=== PATIENT | male | born 1955 | race Caucasian/White ===

== ENCOUNTER 2017-03-12 23:56 | Inpatient (IN) ==
[2017-03-13] MEDS ORDERED: MEROPENEM 1,000 MG in SODIUM CHLORIDE 0.9% 100 ML IV STA (00:13)
[2017-03-13] MEDS ORDERED: MORPHINE 2 MG/1 ML SYRINGE IV STA (00:13)
[2017-03-13] MEDS ORDERED: SODIUM CHLORIDE 0.9% 1,000 ML IV STA (00:13)
[2017-03-13] MEDS ORDERED: ONDANSETRON 4 MG/2 ML VIAL IV STA (00:13)
[2017-03-13] MEDS ORDERED: ONDANSETRON 4 MG/2 ML VIAL ONE (00:19)
[2017-03-13] MEDS ORDERED: MORPHINE 2 MG/1 ML SYRINGE ONE (00:20)
--- NOTE | 2017-03-13 00:22 | Emergency Department Note ---
Isidro Mooney Mantricia, am scribing for, and in the presence of, Pradip Kwan MD 00:17. Aquiles Mooney Robert M, MD, personally performed the services described in this documentation, ascribed by Chris Felix in my presence, and it is both accurate and complete . 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 + diaphoresis. Denies N/V/D. Pt is hyperventilating/anxious at time of triage. Last BM this morning. Denies fever. EKG obtained at time of triage Mode of Arrival: Ambulatory Limitations: No Limitations Source: Patient Time Seen by Provider: 03/13/17 00:10 - History of Present Illness HPI Narrative: Pt is a 61 y/o white male arriving to ED wiht c/o abdominal pain that onset 2200 yesterday. Pt states that he feels like his "diaphragm has locked up." Pt denies diverticulitis. At time of consult, pt is in clear pain and is very anxious. No other complaints were reported to ED. Onset (ago): hour(s) Consistency: constant Allergies/Adverse Reactions: Allergies Allergy/AdvReac Type Severity Reaction Status Date / Time No Known Allergies Allergy Verified 03/13/17 00:00 Home Medications: Home Medications Medication Instructions Recorded Confirmed Type No Known Home Medications [No 03/13/17 03/13/17 History Known Home Medications] Review of System - Review of System 12 point system: reviewed and no additional remarkable complaints except as stated - Review of System Constitutional: Present: diaphoresis. Absent: chills, fever Respiratory: Absent: cough Cardiovascular: Absent: chest pain Gastrointestinal: Present: abdominal pain. Absent: nausea, vomiting, diarrhea Medical,Surgical,& Family Hx - Social History Smoking Status: Current every day smoker Frequency of Alcohol Use: None Type of Drug Use: None Exam Vital Signs: Vital Signs Temperature 98.4 F 03/13/17 00:01 Pulse Rate 142 H 03/13/17 00:01 Respiratory Rate 26 H 03/13/17 00:01 Blood Pressure 148/94 03/13/17 00:01 O2 Sat by Pulse Oximetry 99 03/13/17 00:01 - General General appearance: alert, anxious - Head Head exam: Present: atraumatic, normocephalic, normal inspection - Eye Eye exam: Present: normal appearance, PERRL, EOMI - ENT ENT exam: Present: normal exam, normal oropharynx, mucous membranes moist, TM's normal bilaterally, normal external ear exam - Neck Neck exam: Present: normal inspection, full ROM, trachea midline. Absent: tenderness - Chest Chest inspection: Present: normal inspection, symmetric chest wall rise. Absent : tenderness - Respiratory Respiratory exam: Present: normal lung sounds bilaterally - Cardiovascular Cardiovascular exam: Present: regular rate, normal rhythm, normal heart sounds - Abdominal Exam Abdominal exam: Present: tenderness, rigidity, normal bowel sounds, other. Absent: soft, distention, guarding, rebound - Extremities Exam Extremities exam: Present: normal inspection, full ROM, normal capillary refill. Absent: tenderness, pedal edema - Back Exam Back exam: Present: normal inspection, full ROM. Absent: tenderness - Neurological Exam Neurological exam: Present: alert, oriented X3, CN II-XII intact, normal gait, reflexes normal - Psychiatric Psychiatric exam: Present: normal affect, normal mood - Skin Skin exam: Present: warm, dry, intact, normal color Results - Labs CBC & BMP: 03/13/17 00:14 03/13/17 00:14 Lab Results: I have reviewed the patients labs - Diagnostic Findings Procedure: CT Abdomen and Pelvis: image reviewed by me (Ruptured appendicitis. Structures adjacent to the bladder favored to represent diverticula) Disposition Clinical Impression: Ruptured appendicitis Case discussed with: patient, patient's family Disposition: Still a Patient Condition: Stable Time of Disposition: 01:21
[2017-03-13] MEDS ORDERED: MEROPENEM 1,000 MG VIAL IV ONE (00:24)
[2017-03-13 00:37] LABS: Basophils % 0.2 % (0.0-0.8); Hematocrit 50.1 VOL% (42.0-52.0); Hemoglobin 16.9 GM/DL (14.0-18.0); Immature Granulocytes % 1.2 %; Immature Granulocytes Absolute 0.21 #; Lymphocytes # 1.2 10*3/uL (1.4-4.0); Lymphocytes % 7.1 % (21.2-54.2); Mean Corpuscular HGB Conc 33.7 GM/DL (32-36); Mean Corpuscular Hemoglobin 31 PG (27-34); Mean Corpuscular Volume 90.3 FL (87-102); Mean Platelet Volume 11.9 FL (9.6-12.0); Monocytes # 0.7 10*3/uL (0.11-0.8); Monocytes % 4.2 % (1.7-12.7); Neutrophils # 14.9 10*3/uL (1.4-7.4); Neutrophils % 87.3 % (38.7-73.9); Platelet Count 218 T/CUMM (130-400); Red Blood Count 5.55 MC/CUMM (3.8-5.5); Red Cell Distribution Width 14.1 % (9.3-17.3); White Blood Count 17.1 T/CUMM (4-12)
[2017-03-13 00:44] LABS: Calcium 9.4 MG/DL (8.5-10.1); Magnesium 2.1 MG/DL (1.8-2.4); Osmolality,Calculated 275.8 MOS/KG (273-304); Total Protein 7.2 G/DL (6.4-8.3)
[2017-03-13] MEDS ORDERED: ONDANSETRON 4 MG/2 ML VIAL IV PRN (01:12)
[2017-03-13] MEDS ORDERED: MORPHINE 2 MG/1 ML SYRINGE IV PRN (01:12)
[2017-03-13] MEDS ORDERED: ACETAMINOPHEN 325 MG TABLET PO PRN (01:12)
[2017-03-13] MEDS ORDERED: HYDROmorphone 2 MG/1 ML VIAL ONE (01:17)
[2017-03-13] MEDS ORDERED: HYDROmorphone 2 MG/1 ML VIAL IV STA (01:23)
[2017-03-13] MEDS: metroNIDAZOLE INJ 500 MG in PREMIX 1 EACH IV SCH ×3 (02:39→18:07)
[2017-03-13] MEDS: LACTATED RINGERS 1,000 ML IV SCH ×2 (02:39→08:36)
[2017-03-13 04:31] LABS: Apearance,Urine CLEAR (Clear); Bilirubin,Urine Negative (Negative); Blood, Urine Negative (Negative); Glucose,Urine (UA) Negative (Negative); Ketones,Urine Negative (Negative); Mucus,Urine Occasional /LPF (Occasional); Nitrite,Urine Negative (Negative); Protein,Urine 30 MG/DL; RBC,Urine <1 /HPF (0-4); Squamous Epithelial Cell,Urine Occasional /HPF (0-10); Urine Color Yellow (Yellow); Urine Specific Gravity > 1.060 (1.001-1.035); WBC,Urine <1 /HPF (0-6)
--- NOTE | 2017-03-13 06:05 | CT Report ---
History is abdominal and pelvic pain 100 cc Omnipaque 350 utilized No focal defects seen in the liver, spleen, pancreas, or adrenals. The spleen is mildly enlarged. Small renal cysts present No enlarged retroperitoneal nodes seen Bowel is unopacified. A small amount of mildly loculated fluid adjacent to the transverse and right colon is noted. Pelvis: There is a small calcification near the origin of the appendix. Appendix is diffusely dilated and filled with fluid measuring up to 14 mm with inflammatory changes and thickening involving the wall. Adjacent to the tip the appendix, there is a 2 cm collection of ill-defined gas and fluid with surrounding inflammation. There are miniscule amounts of free air present in the peritoneum and anteriorly. There is small amount fluid in the right pelvis and in the pelvis inferiorly. There is 1.5 cm bilateral posterior lateral bladder diverticuli present with a larger 3.5 cm bladder diverticulum just to the left of midline posteriorly. There is a hernia in the medial left inguinal region containing a loop of bowel and small amount of fluid. Impression: 1. Acute appendicitis with perforation 2. Left internal hernia containing a loop of bowel 3. Mild splenomegaly 4. Multiple bladder diverticula 5. Small amount of ascites The CT exam was performed using one or more of the following dose reduction techniques: Automated exposure control, adjustment of the mA and/or kV according to patient size, or use of iterative reconstruction technique. PROCEDURE INTERPRETED AT [facility] DEPARTMENT OF RADIOLOGY Final Report Signed by: Dr. Shandra Langston
[2017-03-13] MEDS: PANTOPRAZOLE 40 MG TABLET PO SCH (08:04)
--- NOTE | 2017-03-13 08:52 | General Surg History&Physical ---
Assessment and Plan - Time spent with patient Time spent with patient: Greater than 30 minutes (1) Incarcerated left inguinal hernia Status: Acute Assessment and plan: 03/13/2017. Incidental incarcerated left inguinal hernia. Patient indicates this is been present for about 10 years, and although he does have some symptoms associated with hernia, at this point had had no plans for repair. We do not intend to repair this area with foreign manage in the face of infection, and this was discussed with the patient and his family. Current Visit: Yes (2) Ruptured appendicitis Status: Acute Assessment and plan: 03/13/2017. Appendicitis with possible perforation and peritonitis. Plan is to take to surgery for laparoscopic appendectomy with washout. Certainly he is at increased risk for conversion to open procedure. This is discussed with the patient family that were present, including the likelihood that he will need a drain left postoperatively. They seem to understand, and he is anxious to proceed. Also note was made and Dr. Oconnor discussed the incidental findings of left inguinal hernia that is at least partially incarcerated. He indicates that this is been present for 10 years and although he is moderately symptomatic , has as yet not planned to have it repaired. We certainly do not want to attempt repair of this in the face of infection, and this also was discussed with the patient and his family. We will continue empiric antibiotics take him to surgery this morning. Current Visit: Yes History of Present Illness Chief complaint: Abdominal pain x 2 days History of present illness: Mr. García is a 61 year old male Home Medications Medication Instructions Recorded Confirmed Type No Known Home Medications [No 03/13/17 03/13/17 History Known Home Medications] Allergies Allergy/AdvReac Type Severity Reaction Status Date / Time No Known Allergies Allergy Verified 03/13/17 05:06 Medical,Surgical,& Family Hx - Medical History Respiratory: History of: Pneumonia - Surgical History Abdominal Surgeries: Patient denies: Abdominal Surgery Reproductive Surgeries: Patient denies;: Genitourinary Surgery - Social History Smoking Status: Current every day smoker Frequency of Alcohol Use: None Type of Drug Use: None Exam - Constitutional Vitals: Period Temp Pulse Resp BP Sys/Edge Pulse Ox Last 24 Hr 98.4 F-99.3 F 104-142 20-26 94-148/56-94 95-99 General appearance: normal weight, no acute distress, other (AAOx3; family present. He is uncomfortable but able to answer questions appropriately. ) - Head Head exam: Present: normocephalic - Eye Eye exam: Present: EOMI Pupils: Present: PAVEL - ENT Mouth exam: Present: dry mucosa, other (Poor dentition) - Neck Neck exam: Present: trachea midline. Absent: lymphadenopathy - Respiratory Respiratory exam: Present: other (Involuntary guarding with deep inspiration, secondary to abdominal pain.). Absent: rales, wheezes - Cardiovascular Cardiovascular exam: Present: RRR - GI/Abdominal GI/Abdominal exam: Present: distended, guarding, hypoactive bowel sounds, hernia (Large left inguinal hernia, partially reducible. It is not unusually tender. ), tenderness (Along the right side, with localized tenderness at the right periumbilical and lower quandrant sites. ), rebound - Extremities Exam Extremities exam: Present: normal inspection - Neurological Exam Neurological exam: Present: alert, oriented X3 Speech: Present: normal - Genitourinary Genitourinary: Present: other (LIH x 10 years) Results - Labs CBC & BMP: 03/13/17 00:14 03/13/17 00:14 Lab Results: I have reviewed the past 24 hour labs - Diagnostic Findings Procedure: CT Abdomen and Pelvis: image reviewed by me, report reviewed by me ( Reviewed with Dr Oconnor; appendicitis with perforation; also incidental left inguinal hernia with incarcerated loop of bowel)
--- NOTE | 2017-03-13 09:11 | EKG Report ---
Stationary ECG Study [facility] ER Test Date: 03/13/2017 12:05:19 AM Pat Name: JAVID RICE Department: Room: 335 Gender: M [employer]: [employer] : 1955 Requested by: Pradip Kwan Order Number: [id number] Reading MD: JOÃO MOSLEY Intervals [place] Rate: 134 P: 85 [place]: 160 QRS: 66 QRSD: 102 T: 73 QT: 287 QTc: 366 Interpretive Statements SINUS TACHYCARDIA INCOMPLETE RIGHT BUNDLE BRANCH BLOCK MINIMAL ST DEPRESSION Electronically Signed On 03-14-17 06:45:40 CDT by JOÃO MOSLEY [email or web address]
[2017-03-13 09:30] LABS: Basophils % 0.2 % (0.0-0.8); Hematocrit 43.5 VOL% (42.0-52.0); Hemoglobin 15.1 GM/DL (14.0-18.0); Immature Granulocytes % 0.5 %; Immature Granulocytes Absolute 0.06 #; Lymphocytes # 0.6 10*3/uL (1.4-4.0); Lymphocytes % 4.5 % (21.2-54.2); Mean Corpuscular HGB Conc 34.7 GM/DL (32-36); Mean Corpuscular Hemoglobin 31 PG (27-34); Mean Platelet Volume 11.3 FL (9.6-12.0); Monocytes # 0.5 10*3/uL (0.11-0.8); Monocytes % 4.3 % (1.7-12.7); Neutrophils # 11.2 10*3/uL (1.4-7.4); Neutrophils % 90.5 % (38.7-73.9); Platelet Count 161 T/CUMM (130-400); Red Blood Count 4.89 MC/CUMM (3.8-5.5); Red Cell Distribution Width 14.3 % (9.3-17.3); White Blood Count 12.3 T/CUMM (4-12)
[2017-03-13] MEDS ORDERED: BUPIVACAINE MPF 0.25% /EPI 30 ML VIAL ONE (09:37)
--- NOTE | 2017-03-13 09:40 | XRay Report ---
Portable chest. Indication: Respiratory preoperative. No previous study. The heart is normal in size. The pulmonary vasculature is normal. Mild linear areas of atelectasis at the left base. No consolidation, pneumothorax, or pleural effusion. Gaseous distention of bowel. Degenerative changes of the spinal column and shoulders. Impression: Mild left basilar atelectasis. PROCEDURE INTERPRETED AT [facility] DEPARTMENT OF RADIOLOGY Final Report Signed by: Dr. María Langston
[2017-03-13 09:52] LABS: Calcium 8.6 MG/DL (8.5-10.1); Osmolality,Calculated 277.5 MOS/KG (273-304); Potassium 4.3 MMOL/L (3.5-5.1)
[2017-03-13 09:56] LABS: Band Neutrophils 1 % (0-10); Giant Platelets Few; Hypochromasia Slight; Lymphocytes 7 % (20-55); Platelet Estimate Normal; Segmented Neutrophils 86 % (50-85); Total Cells Counted 100
[2017-03-13] MEDS ORDERED: TISSUE ADHESIVE 1 EACH APPLICATOR TOP ONE (11:33)
--- NOTE | 2017-03-13 11:38 | Operative Note ---
Date of procedure: 03/13/17 Pre-op diagnosis: Abdominal pain secondary to acute appendicitis Post-op diagnosis: other (Acute gangrenous perforated appendicitis with peritonitis) Procedure: Operative note: Preoperative diagnosis: Abdominal pain with CT evidence of acute appendicitis Postoperative diagnosis: Acute gangrenous perforated appendicitis Procedure: Laparoscopic appendectomy with placement of drain Surgeon Dr. Oconnor Television Cameraman Qi Hitchcock, AFSHAN ACNP Anesthesia was general with local Brief history: 61-year-old white male who has had the onset of abdominal pain for couple days it has gotten better progressively worse where it makes it even harder for him take a deep breath and he has discomfort in the right lower quadrant especially with motion. He has a certain degree of involuntary guarding at this time. CT scan was performed showing acute appendicitis with possible perforation and fluid. Elected to bring him to surgery and get this appendix out and get some drainage going. Procedure: With patient in the supine position prepped and draped in a sterile fashion timeout and antibiotics completed approaches area just above the umbilicus were infiltrated with local anesthetic and made incision through the skin and subcutaneous tissue. Incised the fascia and then attempted to enter the peritoneal cavity under direct vision but could never get a good sense of it so I took a varies needle lifted up the peritoneum abdominal wall and we popped the varies needle and and then instilled 3 L of CO2. This allowed us to place the 5 mm trocar in without difficulty. We put our scope in and what we found was a large amount of inflammatory tissue up against the anterior abdominal wall right upper quadrant area with omentum in it. Could not get a good feel for a spot for the other trocar. I elected to go ahead and placed a 12 mm trocar and at the right anterior axillary line under direct vision because I could see the clear window at this point. We got that scoping and I was able again to sweep some of this bowel away from the anterior abdominal wall until I could get the 5 mm trocar in the mid hypogastric area. At that point we put him in Trendelenburg and tilted left side position. He had sigmoid colon that was kind of projecting over towards the right lower quadrant area make it difficult to see underneath it. With careful dissection with the atraumatic graspers I was finally able to identify the appendix and begin to bring it up. It was lying underneath the sigmoid colon. We then put a sputum trap and and sucked out the fluid of the pelvis for cultures. At that point went back in and then was able with careful mobilization to mobilize the appendix up enough that I can begin to go across the mesoappendix with vascular and GI staplers. At the slowly walk it up to the base of the cecum to get a good visualization visualization of that cecum. Once I had it up after going across the mesoappendix 4 times with the vascular Endo CHRISTOPHER were able to go across the base of the appendix with a blue Endo CHRISTOPHER stapler. Once the appendix was free from the sacrum we placed in an Endo Catch bag and brought it out through the lateral port. Went back in washed the right lower quadrant and the pelvic area out as much as we could remove any what looked like some stool product out of the pelvic area and the right lower quadrant region. There were some adhesions in the upper part but they looked a little more old and fresh so I could not take a lot of that down at this time. Once that had been completed I took a 10 Konrad-Garcia brought to the lateral port placed in the pelvis and in the right lower quadrant area. We then took an Endo Close and closed the fascia peritoneum around the drain with a #1 Monocryl suture. Once that was tied and this was secured then we then deflated the abdomen went back to the umbilicus and closed that fascia with interrupted 0 Monocryl suture. We washed out subtenons tissue closed with 30 Vicryl Close the skin with running 4-0 Monocryl we had to place a 3-0 nylon around the drain at the drain site. Once that was completed was taken to recovery room. Estimated blood loss 15 cc Sponge count correct 2 Drains one #10 Konrad-Garcia Complications none Condition stable satisfactory Anesthesia: GETA, local (0.25% Marcaine with epinephrine mixed have not once in Xylocaine plain into the trocar sites.) Surgeon / Physician: Pradip Oconnor Television Cameraman: Qi Hitchcock Estimated blood loss: other (15 cc) Specimens: other (Fluid for cultures and the appendix) Condition: stable Disposition: floor Results - Labs CBC & BMP: 03/13/17 09:16 03/13/17 09:16 Discharge Plan - Discharge Medications No Action No Known Home Medications [No Known Home Medications] - Follow Up or Referral - Forms/Instructions
[2017-03-13] MEDS: DEXTROSE 5% NACL 0.9% 1,000 ML IV SCH ×3 (11:57→22:29)
[2017-03-13] MEDS ORDERED: SEVOFLURANE 1 UNIT/15 MINUTE INH ONE (12:09)
[2017-03-13] MEDS ORDERED: MIDAZOLAM 2 MG/2 ML VIAL ONE (12:09)
[2017-03-13] MEDS ORDERED: fentaNYL 100 MCG/2 ML VIAL ONE (12:10)
[2017-03-13] MEDS ORDERED: LACTATED RINGERS 1,000 ML IV ONE (12:10)
--- NOTE | 2017-03-13 13:04 | Anesthesia Post-Op ---
Anesthesia Post OP - Post Ansesthetic Evaluation Patient seen in post op: Yes Resp: within normal limits CV: within normal limits Mental: within normal limits Temp: within normal limits [id number]: within normal limits Nausea and Vomiting: within normal limits Pain: within normal limits
[2017-03-13] MEDS: HYDROmorphone 2 MG/1 ML VIAL IV PRN (17:14)
[2017-03-14] MEDS: metroNIDAZOLE INJ 500 MG in PREMIX 1 EACH IV SCH ×3 (02:40→19:28)
[2017-03-14] MEDS: DEXTROSE 5% NACL 0.9% 1,000 ML IV SCH ×2 (03:04→16:11)
[2017-03-14 05:56] LABS: Basophils % 0.1 % (0.0-0.8); Hematocrit 39.5 VOL% (42.0-52.0); Hemoglobin 13.2 GM/DL (14.0-18.0); Immature Granulocytes % 0.5 %; Immature Granulocytes Absolute 0.04 #; Lymphocytes # 0.5 10*3/uL (1.4-4.0); Lymphocytes % 6.1 % (21.2-54.2); Mean Corpuscular HGB Conc 33.4 GM/DL (32-36); Mean Corpuscular Hemoglobin 30 PG (27-34); Mean Corpuscular Volume 90.6 FL (87-102); Mean Platelet Volume 12.2 FL (9.6-12.0); Monocytes # 0.3 10*3/uL (0.11-0.8); Neutrophils # 7.6 10*3/uL (1.4-7.4); Neutrophils % 89.3 % (38.7-73.9); Platelet Count 158 T/CUMM (130-400); Red Blood Count 4.36 MC/CUMM (3.8-5.5); Red Cell Distribution Width 14.6 % (9.3-17.3); White Blood Count 8.5 T/CUMM (4-12)
[2017-03-14 06:18] LABS: Band Neutrophils 1 % (0-10); Hypochromasia Slight; Lymphocytes 11 % (20-55); Platelet Estimate Normal; Segmented Neutrophils 83 % (50-85); Total Cells Counted 100
[2017-03-14 06:34] LABS: Albumin 2.5 G/DL (3.4-5.0); Calcium 8.6 MG/DL (8.5-10.1); Osmolality,Calculated 279.4 MOS/KG (273-304); Potassium 4.4 MMOL/L (3.5-5.1); Total Protein 5.2 G/DL (6.4-8.3)
[2017-03-14] MEDS: ENOXAPARIN 40 MG/0.4 ML SYRINGE SUBCUT SCH (07:50)
--- NOTE | 2017-03-14 08:39 | EKG Report ---
Stationary ECG Study [facility] Test Date: 03/13/2017 9:22:42 AM Pat Name: JAVID RICE Department: Room: 335 Gender: M Wrapping Machine Operator: : 1955 Requested by: Daniel Moulton Order Number: [id number] Reading MD: JOÃO MOSLEY Intervals [place] Rate: 96 P: 68 [place]: 155 QRS: 42 QRSD: 102 T: 43 QT: 327 QTc: 381 Interpretive Statements SINUS RHYTHM INCOMPLETE RIGHT BUNDLE BRANCH BLOCK Electronically Signed On 03-13-17 11:33:18 CDT by JOÃO MOSLYE [id number]
[2017-03-14] MEDS: PANTOPRAZOLE 40 MG TABLET PO SCH (09:08)
[2017-03-14] MEDS: ONDANSETRON 4 MG/2 ML VIAL IV PRN (09:09)
--- NOTE | 2017-03-14 09:11 | General Surgery Progress Note ---
Assessment and Plan (1) Incarcerated left inguinal hernia Status: Acute Assessment and plan: 03/13/2017. Incidental incarcerated left inguinal hernia. Patient indicates this is been present for about 10 years, and although he does have some symptoms associated with hernia, at this point had had no plans for repair. We do not intend to repair this area with foreign manage in the face of infection, and this was discussed with the patient and his family. Current Visit: Yes (2) Ruptured appendicitis Status: Acute Assessment and plan: 03/13/2017. Appendicitis with possible perforation and peritonitis. Plan is to take to surgery for laparoscopic appendectomy with washout. Certainly he is at increased risk for conversion to open procedure. This is discussed with the patient family that were present, including the likelihood that he will need a drain left postoperatively. They seem to understand, and he is anxious to proceed. Also note was made and Dr. Oconnor discussed the incidental findings of left inguinal hernia that is at least partially incarcerated. He indicates that this is been present for 10 years and although he is moderately symptomatic , has as yet not planned to have it repaired. We certainly do not want to attempt repair of this in the face of infection, and this also was discussed with the patient and his family. We will continue empiric antibiotics take him to surgery this morning. 03/14/2017. Stable postop laparoscopic appendectomy for acute gangrenous appendicitis. We will plan to leave him on clear since he is nauseated today. We will get him up in chair and increase his mobility. Treat his nausea symptomatically and advance his diet very slowly. Overall progressing slowly Current Visit: Yes Subjective Patient reports: Present: pain is less, nausea. Absent: vomiting, shortness of breath Exam - Constitutional Vitals: Period Temp Pulse Resp BP Sys/Edge Pulse Ox Last 24 Hr 97.2 F-99.1 F 75-97 16-20 103-127/62-92 92-100 General appearance: no acute distress - Respiratory Respiratory exam: Present: rhonchi. Absent: wheezes - Cardiovascular Cardiovascular exam: Present: RRR - GI/Abdominal GI/Abdominal exam: Present: hypoactive bowel sounds, soft, other (SHREYAS drainage is approximately 30-40 cc, still a bit cloudy with some mild debris. Abdomen is appropriately tender postop. Incisions are clean and dry without any unusual redness.) - Extremities Exam Extremities exam: Present: normal inspection Results - Labs CBC & BMP: 03/14/17 03:53 03/14/17 03:53 Lab Results: I have reviewed the past 24 hour labs
--- NOTE | 2017-03-14 09:33 | Physician Query Form ---
CLICK EDIT DOCUMENT TO SELECT QUERY ANSWER --> OK --> SIGN Cookie Kwan RN, CCDS Certified Clinical Hand Roller W) [phone] (f) [phone] [email or web address] PROVIDERS: Make your selection(s) from the choices in EACH section by typing an "x" and enter comments in the comment section. Please use your independent medical judgment in providing your response. This request does not imply that any particular answer is desired or expected. CLINICAL INDICATORS: (Providers should not edit this section) The medical record indicates that the patient was admitted with a ruptured appendicitis, Peritonitis, WBC 17.1#, Lactic Acid of 4.0, Pulse Rate 142#, Respirations of 26# and the patient was placed on Antibiotics. Please clarify which, if any, of the following is the etiology of the above symptoms and treatment rendered: (x ) Sepsis due to a localized infection, please specify infection: Appendix; peritoneum ( ) Severe Sepsis (sepsis with acute organ failure) - Please specify type acute organ failure: ( ) Septic Shock (severe sepsis with hypotension) ( ) SIRS of noninfectious origin ( ) Sepsis due to a device, implant or graft, please specify: ( ) Localized infection only, without systemic illness, please specify infection : ( ) Bacteremia (abnormal lab finding only, does not indicate systemic illness) ( ) Other condition, please specify: ( ) Clinically unable to determine Criteria for Sepsis (SIRS due to an infection) should be based on 2 or more of the following being present: Temperature > 101F or < 96.8F WBC > 12,000 or < 4,000, or > 10% bands Tachycardia HR > 90 beats/minute Tachypnea RR > 20 breaths/minute or PaCO2 > 32mmHg Lactate level > 2.0 mmol/L (>4 is equivalent to severe sepsis) Altered Mental Status Mottling of skin or prolonged capillary refill Non-diabetic hyperglycemia (blood sugar >120 mg/dl) Other evidence of acute organ failure associated with sepsis ( severe sepsis) COMMENTS: PLEASE ALSO DOCUMENT RESPONSE IN PROGRESS NOTES AND/OR DISCHARGE SUMMARY Use of terms such as suspected, likely, or probable (associated with a specific diagnosis that is being evaluated, monitored, or treated as if it exists) are acceptable and can be restated in the discharge summary if not ruled out. MTDD
[2017-03-14] MEDS ORDERED: PHENYLEPHRINE 1 MG/10 ML SYRINGE IV ONE (09:50)
[2017-03-14] MEDS ORDERED: ONDANSETRON 4 MG/2 ML VIAL ONE (09:50)
[2017-03-14] MEDS ORDERED: DEXAMETHASONE 10 MG/1 ML VIAL ONE (09:50)
[2017-03-14] MEDS ORDERED: SUCCINYLCHOLINE 200 MG/10 ML VIAL ONE (09:50)
[2017-03-14] MEDS ORDERED: ROCURONIUM 100 MG/10 ML VIAL IV ONE (09:50)
[2017-03-14] MEDS ORDERED: PROPOFOL 200 MG/20 ML VIAL IV ONE (09:50)
[2017-03-14] MEDS ORDERED: LIDOCAINE 1% 5 ML VIAL ONE (09:50)
[2017-03-14] MEDS: HYDROmorphone 2 MG/1 ML VIAL IV PRN ×3 (10:33→21:38)
[2017-03-15] MEDS: metroNIDAZOLE INJ 500 MG in PREMIX 1 EACH IV SCH ×3 (02:42→19:06)
[2017-03-15] MEDS: DEXTROSE 5% NACL 0.9% 1,000 ML IV SCH ×3 (02:46→22:30)
[2017-03-15] MEDS: HYDROmorphone 2 MG/1 ML VIAL IV PRN ×4 (03:53→22:27)
[2017-03-15] MEDS: ENOXAPARIN 40 MG/0.4 ML SYRINGE SUBCUT SCH (05:34)
[2017-03-15] MEDS: PANTOPRAZOLE 40 MG TABLET PO SCH (09:38)
--- NOTE | 2017-03-15 09:54 | General Surgery Progress Note ---
Assessment and Plan - Time spent with patient Time spent with patient: Less than 30 minutes (1) Incarcerated left inguinal hernia Status: Acute Assessment and plan: 03/13/2017. Incidental incarcerated left inguinal hernia. Patient indicates this is been present for about 10 years, and although he does have some symptoms associated with hernia, at this point had had no plans for repair. We do not intend to repair this area with foreign manage in the face of infection, and this was discussed with the patient and his family. Current Visit: Yes (2) Ruptured appendicitis Status: Acute Assessment and plan: 03/13/2017. Appendicitis with possible perforation and peritonitis. Plan is to take to surgery for laparoscopic appendectomy with washout. Certainly he is at increased risk for conversion to open procedure. This is discussed with the patient family that were present, including the likelihood that he will need a drain left postoperatively. They seem to understand, and he is anxious to proceed. Also note was made and Dr. Oconnor discussed the incidental findings of left inguinal hernia that is at least partially incarcerated. He indicates that this is been present for 10 years and although he is moderately symptomatic , has as yet not planned to have it repaired. We certainly do not want to attempt repair of this in the face of infection, and this also was discussed with the patient and his family. We will continue empiric antibiotics take him to surgery this morning. 03/14/2017. Stable postop laparoscopic appendectomy for acute gangrenous appendicitis. We will plan to leave him on clear since he is nauseated today. We will get him up in chair and increase his mobility. Treat his nausea symptomatically and advance his diet very slowly. Overall progressing slowly 03/15/2017. Progressing very slowly postop lap appendectomy for gangrenous perforated appendix. He is certainly not moving well, but it is encouraging to areas bowel activity. Will slowly advance his diet to full liquids and get him out of bed today. We will add some Mylanta PRN and Reglan. Of note he does have gram negative rods on blood cultures 2. We will add Levaquin IV as well. Current Visit: Yes Subjective Patient reports: Present: still having pain, tolerating liquids well, other ( Complains of "fullness" with any p.o. intake). Absent: no bowel movement Exam - Constitutional Vitals: Period Temp Pulse Resp BP Sys/Edge Pulse Ox Last 24 Hr 97.1 F-98.2 F 79-89 14-19 102-133/67-78 95-98 General appearance: normal weight, no acute distress - ENT Mouth exam: Present: dry mucosa - Respiratory Respiratory exam: Present: clear to auscultation bilaterally - Cardiovascular Cardiovascular exam: Present: RRR - GI/Abdominal GI/Abdominal exam: Present: distended, other (Is bit more distended today, although he does have some intermittent bowel sounds due to.) - Extremities Exam Extremities exam: Present: normal inspection - Neurological Exam Neurological exam: Present: alert, oriented X3 Results - Labs CBC & BMP: 03/14/17 03:53 03/14/17 03:53 Specialty Discharge - Follow Up or Referrals Follow up with: Pradip Oconnor MD [Physician] -
[2017-03-15] MEDS: LEVOFLOXACIN INJ 500 MG in PREMIX 1 EACH IV SCH (11:04)
[2017-03-15] MEDS: METOCLOPRAMIDE 10 MG/2 ML VIAL IV SCH ×2 (12:07→18:41)
[2017-03-16] MEDS: METOCLOPRAMIDE 10 MG/2 ML VIAL IV SCH ×5 (00:50→23:55)
[2017-03-16] MEDS: metroNIDAZOLE INJ 500 MG in PREMIX 1 EACH IV SCH ×3 (03:13→18:05)
--- NOTE | 2017-03-16 03:31 | Pathology Report from [facility] ---
[facility] [place] ACCESSION # : [id number] PATIENT NAME : Javid García ORDERING DR : MARY SCHMITZ MD CLINICAL HX: Ruptured appendicitis POST-OP DX: Same SPECIMEN INFO: Appendix GROSS DESCRIPTION: The specimen is received in formalin labeled with the patients name and consists of an appendix measuring 10.0 cm in length and up to 1.0 cm in diameter. The serosa is markedly erythematous with two ruptured areas noted. A 1.0 x 0.7 cm fecalith is noted near the proximal aspect of the appendix. Construction Mgr sections submitted in one cassette. DIAGNOSIS FOR JAVID GARCÍA: APPENDIX, APPENDECTOMY: Acute suppurative appendicitis. COLLECTED DATE: 03/14/2017 [facility] [place] REPORT DATE: 03/15/2017 ELECTRONICALLY SIGNED BY: Isak Jonas M.D. 03/15/2017 - 8:43:19 MTDD
[2017-03-16] MEDS: ENOXAPARIN 40 MG/0.4 ML SYRINGE SUBCUT SCH (05:01)
[2017-03-16 06:07] LABS: Basophils % 0.2 % (0.0-0.8); Eosinophils % 0.3 % (0.00-10.9); Hematocrit 44.2 VOL% (42.0-52.0); Hemoglobin 14.9 GM/DL (14.0-18.0); Immature Granulocytes % 0.9 %; Immature Granulocytes Absolute 0.08 #; Lymphocytes # 0.7 10*3/uL (1.4-4.0); Mean Corpuscular HGB Conc 33.7 GM/DL (32-36); Mean Corpuscular Hemoglobin 30 PG (27-34); Mean Corpuscular Volume 88.4 FL (87-102); Monocytes # 0.4 10*3/uL (0.11-0.8); Monocytes % 4.8 % (1.7-12.7); Neutrophils # 7.8 10*3/uL (1.4-7.4); Neutrophils % 85.8 % (38.7-73.9); Platelet Count 253 T/CUMM (130-400); Red Cell Distribution Width 14.4 % (9.3-17.3); White Blood Count 9.1 T/CUMM (4-12)
[2017-03-16 06:35] LABS: Albumin 2.6 G/DL (3.4-5.0); Bilirubin,Total 0.8 MG/DL (0.2-1.0); Osmolality,Calculated 277.7 MOS/KG (273-304); Total Protein 5.8 G/DL (6.4-8.3)
[2017-03-16] MEDS: HYDROmorphone 2 MG/1 ML VIAL IV PRN ×2 (07:20→11:06)
[2017-03-16] MEDS: DEXTROSE 5% NACL 0.9% 1,000 ML IV SCH ×4 (07:56→20:27)
[2017-03-16] MEDS: PANTOPRAZOLE 40 MG TABLET PO SCH (09:15)
[2017-03-16] MEDS: LEVOFLOXACIN INJ 500 MG in PREMIX 1 EACH IV SCH (09:54)
--- NOTE | 2017-03-16 10:02 | General Surgery Progress Note ---
Assessment and Plan (1) Incarcerated left inguinal hernia Status: Acute Assessment and plan: 03/13/2017. Incidental incarcerated left inguinal hernia. Patient indicates this is been present for about 10 years, and although he does have some symptoms associated with hernia, at this point had had no plans for repair. We do not intend to repair this area with foreign manage in the face of infection, and this was discussed with the patient and his family. Current Visit: Yes (2) Ruptured appendicitis Status: Acute Assessment and plan: 03/13/2017. Appendicitis with possible perforation and peritonitis. Plan is to take to surgery for laparoscopic appendectomy with washout. Certainly he is at increased risk for conversion to open procedure. This is discussed with the patient family that were present, including the likelihood that he will need a drain left postoperatively. They seem to understand, and he is anxious to proceed. Also note was made and Dr. Oconnor discussed the incidental findings of left inguinal hernia that is at least partially incarcerated. He indicates that this is been present for 10 years and although he is moderately symptomatic , has as yet not planned to have it repaired. We certainly do not want to attempt repair of this in the face of infection, and this also was discussed with the patient and his family. We will continue empiric antibiotics take him to surgery this morning. 03/14/2017. Stable postop laparoscopic appendectomy for acute gangrenous appendicitis. We will plan to leave him on clear since he is nauseated today. We will get him up in chair and increase his mobility. Treat his nausea symptomatically and advance his diet very slowly. Overall progressing slowly 03/15/2017. Progressing very slowly postop lap appendectomy for gangrenous perforated appendix. He is certainly not moving well, but it is encouraging to areas bowel activity. Will slowly advance his diet to full liquids and get him out of bed today. We will add some Mylanta PRN and Reglan. Of note he does have gram negative rods on blood cultures 2. We will add Levaquin IV as well. 03/16/2017. Stable postop appendectomy. He is having increased bowel sounds and is now moving about better. Since he is having no nausea or vomiting and is showing a little more signs of an appetite, we will go ahead and advance his diet in hopes of eliciting a bowel movement. I have also ordered a suppository as needed. Continue IV antibiotics and plan to leave the SHREYAS drain until he is ready for discharge. Current Visit: Yes Subjective Patient reports: Present: still having pain, pain is less, tolerating liquids well, voiding w/o difficulty, no flatus, other (He has been sitting up in the chair yesterday. Says he feels a little better. ). Absent: nausea, vomiting, shortness of breath Exam - Constitutional Vitals: Period Temp Pulse Resp BP Sys/Edge Pulse Ox Last 24 Hr 96.9 F-97.7 F 73-89 18-20 113-154/68-94 94-95 General appearance: no acute distress - Respiratory Respiratory exam: Present: clear to auscultation bilaterally - Cardiovascular Cardiovascular exam: Present: RRR - GI/Abdominal GI/Abdominal exam: Present: hypoactive bowel sounds, other (Abdomen is still a little distended. He does have increased bowel sounds present. He is appropriately tender, and his SHREYAS output is clear peritoneal fluid without any unusual debris.) - Extremities Exam Extremities exam: Present: normal inspection Results - Labs CBC & BMP: 03/16/17 05:28 03/16/17 05:28 Lab Results: I have reviewed the past 24 hour labs (Labs now near normal.) Specialty Discharge - Follow Up or Referrals Follow up with: Pradip Oconnor MD [Physician] -
[2017-03-16] MEDS ORDERED: BISACODYL 10 MG SUPP RECTAL PRN (10:03)
[2017-03-16] MEDS ORDERED: DOCUSATE SODIUM 100 MG CAPSULE PO PRN (10:03)
[2017-03-17] MEDS: metroNIDAZOLE INJ 500 MG in PREMIX 1 EACH IV SCH ×3 (02:26→18:01)
[2017-03-17] MEDS: DEXTROSE 5% NACL 0.9% 1,000 ML IV SCH ×2 (04:45→06:40)
[2017-03-17] MEDS: ENOXAPARIN 40 MG/0.4 ML SYRINGE SUBCUT SCH (04:45)
[2017-03-17] MEDS: METOCLOPRAMIDE 10 MG/2 ML VIAL IV SCH (05:04)
[2017-03-17] MEDS: PANTOPRAZOLE 40 MG TABLET PO SCH (09:11)
--- NOTE | 2017-03-17 09:52 | General Surgery Progress Note ---
Assessment and Plan (1) Incarcerated left inguinal hernia Status: Acute Assessment and plan: 03/13/2017. Incidental incarcerated left inguinal hernia. Patient indicates this is been present for about 10 years, and although he does have some symptoms associated with hernia, at this point had had no plans for repair. We do not intend to repair this area with foreign manage in the face of infection, and this was discussed with the patient and his family. Current Visit: Yes (2) Ruptured appendicitis Status: Acute Assessment and plan: 03/13/2017. Appendicitis with possible perforation and peritonitis. Plan is to take to surgery for laparoscopic appendectomy with washout. Certainly he is at increased risk for conversion to open procedure. This is discussed with the patient family that were present, including the likelihood that he will need a drain left postoperatively. They seem to understand, and he is anxious to proceed. Also note was made and Dr. Oconnor discussed the incidental findings of left inguinal hernia that is at least partially incarcerated. He indicates that this is been present for 10 years and although he is moderately symptomatic , has as yet not planned to have it repaired. We certainly do not want to attempt repair of this in the face of infection, and this also was discussed with the patient and his family. We will continue empiric antibiotics take him to surgery this morning. 03/14/2017. Stable postop laparoscopic appendectomy for acute gangrenous appendicitis. We will plan to leave him on clear since he is nauseated today. We will get him up in chair and increase his mobility. Treat his nausea symptomatically and advance his diet very slowly. Overall progressing slowly 03/15/2017. Progressing very slowly postop lap appendectomy for gangrenous perforated appendix. He is certainly not moving well, but it is encouraging to areas bowel activity. Will slowly advance his diet to full liquids and get him out of bed today. We will add some Mylanta PRN and Reglan. Of note he does have gram negative rods on blood cultures 2. We will add Levaquin IV as well. 03/16/2017. Stable postop appendectomy. He is having increased bowel sounds and is now moving about better. Since he is having no nausea or vomiting and is showing a little more signs of an appetite, we will go ahead and advance his diet in hopes of eliciting a bowel movement. I have also ordered a suppository as needed. Continue IV antibiotics and plan to leave the SHREYAS drain until he is ready for discharge. 03/17/17 Doing well post op lap appendectomy with peritonitis. He is tolerating a regular diet and having bowel movements, so will d/c routine IV fluids and Reglan. We now have sensitivities for the peritoneal fluid, which showed Gram negative organisms including Pseudomonas aeruginosa; blood cultures were positive as well, with Gram negative organisms(Prevotella species-no sensitivity available). I discussed this finding with Dr Avilez and we will continue the IV route but tailor his antibiotics to Cipro/Clindamycin, as he can transition to home therapy on these, well as continue Flagyl. Overall, he is improved greatly from yesterday, and we can now begin to make discharge plans soon. Current Visit: Yes Subjective Patient reports: Present: feels better, pain is less, tolerating a regular diet , flatus, bowel movement. Absent: nausea, vomiting, shortness of breath Exam - Constitutional Vitals: Period Temp Pulse Resp BP Sys/Edge Pulse Ox Last 24 Hr 96.8 F-98.9 F 74-96 18-20 129-155/68-92 95-96 General appearance: no acute distress - Respiratory Respiratory exam: Present: clear to auscultation bilaterally - Cardiovascular Cardiovascular exam: Present: RRR - GI/Abdominal GI/Abdominal exam: Present: other (Abdomen is mildly distended, appropriately tender, and has normoactive bowel sounds. The incisions are clean and dry without unusual redness or tenderness. SHREYAS in place; serous drainage in bulb. There was a bump in amount to 140mL last night but down to 30mL today. No debris or purulent matter. ) - Extremities Exam Extremities exam: Present: normal inspection Results - Labs CBC & BMP: 03/16/17 05:28 03/16/17 05:28 Specialty Discharge - Follow Up or Referrals Follow up with: Pradip Oconnor MD [Physician] -
[2017-03-17] MEDS: CIPROFLOXACIN INJ 400 MG in PREMIX 1 EACH IV SCH ×2 (10:26→21:43)
--- NOTE | 2017-03-17 10:49 | Event Note ---
I have seen and examined this patient and agree with the note by AFSHAN Mckeon. The patient had positive blood cultures on admission with Prevotella species and is also being treated for multi-bacterial abscess from appendicitis. He appears to be doing well and potential for discharge home as possible. We will place the patient on clindamycin and ciprofloxacin which will cover both of his cultures. Continue current care for now
[2017-03-17] MEDS: CLINDAMYCIN INJ 600 MG in PREMIX 1 EACH IV SCH ×2 (11:40→17:15)
[2017-03-18] MEDS: CLINDAMYCIN INJ 600 MG in PREMIX 1 EACH IV SCH (02:23)
[2017-03-18] MEDS: metroNIDAZOLE INJ 500 MG in PREMIX 1 EACH IV SCH (04:25)
[2017-03-18 05:43] LABS: Basophils # 0.1 10*3/uL (0.0-0.2); Basophils % 0.5 % (0.0-0.8); Eosinophils # 0.1 10*3/uL (0.0-0.87); Eosinophils % 1.5 % (0.00-10.9); Hematocrit 40.7 VOL% (42.0-52.0); Hemoglobin 13.7 GM/DL (14.0-18.0); Immature Granulocytes Absolute 0.28 #; Lymphocytes # 0.9 10*3/uL (1.4-4.0); Lymphocytes % 10.1 % (21.2-54.2); Mean Corpuscular HGB Conc 33.7 GM/DL (32-36); Mean Corpuscular Hemoglobin 30 PG (27-34); Mean Corpuscular Volume 87.9 FL (87-102); Mean Platelet Volume 10.4 FL (9.6-12.0); Monocytes # 0.7 10*3/uL (0.11-0.8); Monocytes % 7.6 % (1.7-12.7); Neutrophils # 7.1 10*3/uL (1.4-7.4); Neutrophils % 77.3 % (38.7-73.9); Platelet Count 246 T/CUMM (130-400); Red Blood Count 4.63 MC/CUMM (3.8-5.5); Red Cell Distribution Width 14.4 % (9.3-17.3); White Blood Count 9.2 T/CUMM (4-12)
[2017-03-18 06:13] LABS: Calcium 8.2 MG/DL (8.5-10.1); Magnesium 2.2 MG/DL (1.8-2.4); Osmolality,Calculated 274.7 MOS/KG (273-304); Potassium 3.9 MMOL/L (3.5-5.1)
[2017-03-18] MEDS: ENOXAPARIN 40 MG/0.4 ML SYRINGE SUBCUT SCH (06:51)
[2017-03-18] MEDS: PANTOPRAZOLE 40 MG TABLET PO SCH (08:48)
--- NOTE | 2017-03-18 08:56 | Event Note ---
General Surgery Progress Note Chief complaint This patient is a 61-year-old man admitted with acute appendicitis complicated by bacteremia who was treated with laparoscopic appendectomy on 03/13/2017 Interval history The patient is doing well with no fevers. His cultures have finalized and he is on appropriate IV antibiotics for both wound and blood cultures. He is tolerating more of his diet. He feels well overall. Physical exam Afebrile with normal vital signs Abdominal exam reveals some erythema around the midline incisions laparoscopic surgery incisions but no progression from yesterday. No drainage. SHREYAS drain is serous. Labs Reviewed Imaging None Assessment and plan Changed to p.o. antibiotics Plan for discharge tomorrow if doing well
[2017-03-18] MEDS: CIPROFLOXACIN 500 MG TABLET PO SCH ×2 (09:33→20:35)
[2017-03-18] MEDS: CLINDAMYCIN 300 MG CAPSULE PO SCH ×3 (11:27→23:50)
[2017-03-18] MEDS: ONDANSETRON 4 MG/2 ML VIAL IV PRN (21:06)
[2017-03-19] MEDS: ENOXAPARIN 40 MG/0.4 ML SYRINGE SUBCUT SCH (05:07)
[2017-03-19] MEDS: CLINDAMYCIN 300 MG CAPSULE PO SCH (06:08)
[2017-03-19] MEDS: CIPROFLOXACIN 500 MG TABLET PO SCH (08:15)
[2017-03-19] MEDS: PANTOPRAZOLE 40 MG TABLET PO SCH (08:15)
--- NOTE | 2017-03-19 08:59 | Discharge Summary ---
Hospital Course - Hospital Course Hospital Course: Discharge summary: Discharge diagnoses: Acute gangrenous perforated appendicitis with abscess formation. Procedure: Laparoscopic appendectomy with placement of drains Surgeon Dr. Oconnor Final Cleaner Qi Hitchcock, NETWORK DIRECTOR ACNP Brief summary 61-year-old white male who came in after several days of abdominal pain with a CT evidence of appendicitis. We put him on antibiotics and taken to the operating room where we found gangrenous appendicitis with perforation and a good bit of fluid and possible abscess formation around the periappendiceal area. We were able to get the appendix out with scope wash things up as cleanly as we could possibly get it then laid a drain into this pelvic area at this time. Patient's postoperative course was a little bit rough and prolonged due to a prolonged ileus as well as a good bit of discomfort in the abdomen in relation to surgery and the degree of peritonitis that he had. We did cultures that came back and we have modified her antibiotics and now see that he could possibly go home on just Cipro and cover the organisms that were grown. He has progressed slowly but has had bowel movements now tolerated his diet fairly well. His white counts come down to 9000 his SHREYAS drainage has decreased to about 10 cc even though we get some drainage around the drain sites at this time. At this point we went ahead and pulled the drain which he tolerated fairly well without too much difficulty. There is a little redness around the incisional sites at this time but I think they will be able to go ahead and let him go home and follow this up in about a week. Going keep him on another week of antibiotics at this point to ensure that we got things under good control and then decide within the we need to extended after we see him in the office. Certainly I do not think we totally out of the chacon of him developing additional infection but we get a see exactly how this is going to play out now. But I think he is able to go home and manage most of this at home given him special instructions he may have some increased drainage from the drain site for couple days before decreases. - Time spent with patient Time with patient DS: Greater than 30 minutes Diagnosis - Discharge Diagnosis (1) Ruptured appendicitis Status: Resolved Specialty Discharge - Follow Up or Referrals Follow up with: Pradip Oconnor MD [Physician] - 1 Week - Speciality Discharge Instructions Surgery Instructions: 1. Wash daily shower preferred. 2. Continue to keep a light dressing over the drain site as well as the other incisions as needed for comfort and protection. 3. Laxatives as needed if no bowel movement. 4. Drink plenty of fluids. 5. Slowly increase activities daily to not be too sore by the end of any day. 6. Avoid any heavy lifting or straining Discharge Plan - Discharge Data Disposition: Disch To Home/Self Care Condition at Discharge: Stable Discharge Diet: advance to your usual diet Activity: no lifting, other (No straining/my ride in a car and going downstairs) Hygiene: may shower Weight Bearing at Discharge: full weight bearing Driving: not until seen by doctor Contact your physician if you experience:: fever over 101, Redness or swelling, Nausea/Vomiting, Shortness of breath, pain uncontrolled by pain medications Wound / Dressing Care Instructions: Wound care to the incisions and drain site daily. 1. Shower may use soap of choice. 2. Cover each incision with a light 4 x 4 gauze - Discharge Medications New Ciprofloxacin Tab [Cipro Tab] 500 mg PO Q12HR #14 tablet Docusate Sodium Cap [Colace Cap] 100 mg PO BEDTIME #20 capsule Acetaminophen Tab [Tylenol Tab] 650 mg PO Q6H PRN tablet PRN Reason: Pain Mild (1-3) And/Or Fever HYDROcodone/ACETAMIN 7.5-325 [[place] 7.5-325] 1 tablet PO Q6H PRN #30 tablet PRN Reason: Pain Moderate (4-7) - Follow Up or Referral Follow Up: Pradip Oconnor MD [Physician] - - Forms/Instructions Exam - Constitutional Vitals: Period Temp Pulse Resp BP Sys/Edge Pulse Ox Last 24 Hr 97.5 F-98.0 F 78-96 16-20 121-149/78-89 94-97 General appearance: mild distress - Head Head exam: Present: normal inspection - ENT ENT exam: Present: normal exam - Neck Neck exam: Present: normal inspection - Respiratory Respiratory exam: Present: clear to auscultation bilaterally, rales - Cardiovascular Cardiovascular exam: Present: regular rate and rhythm - GI/Abdominal GI/Abdominal exam: Present: hypoactive bowel sounds, tenderness (About the incisional sites), soft, other (Drain site is clean and dry at this time and the incisions show a little bit of redness around them but no unusual tenderness or induration no drainage.). Absent: distended, guarding - Extremities Exam Extremities exam: Present: normal inspection - Back Exam Back exam: Present: normal inspection - Neurological Exam Neurological exam: Present: alert, oriented X3, CN II-XII intact - Psychiatric Psychiatric exam: Present: normal affect, normal mood, anxious - Skin Skin exam: Present: normal color, warm, dry Discharge Results Procedures and tests throughout hospitalization: Pending Orders 03/17/17 12:44 Blood Culture Timed Labs on day of discharge: Preliminary micro results at discharge 03/17/17 12:44 Blood Culture - Preliminary Blood No growth at 1 day 03/17/17 12:44 Blood Culture - Preliminary Blood No growth at 1 day DS: Provider Date of admission: 03/13/17 01:12 Primary care physician: . No PCP Attending physician on admission: Pradip Oconnor MD Consults: 03/13/17 08:47 Consult to Anesthesiology [CONS] Routine Consulting Provider: Reason for Anesthesiology: Pre-op Clearance Discharging clinician: Pradip Oconnor MD Expected date of discharge: 03/19/17
[2017-03-19 11:41] VITALS: BP 114/71
== END 2017-03-19 12:04 | disposition home or self-care (01) | DRG 853 ==
LOC: N.ED 23:56 → N.EDINP 03-13 01:12 → N.3E 03-13 02:14
PROVIDERS: ADMIT Specialist; ATTEND Specialist